=== PATIENT | male | born 1970 | race Caucasian/White ===

== ENCOUNTER 2019-07-26 18:52 | Emergency (ER) | payer OTHER ==
[2019-07-26 18:57] VITALS: TEMP 98.1
[2019-07-26] MEDS ORDERED: HYDROcodone/APAP 5-325MG 1 EACH TAB PO STA (19:30)
[2019-07-26] MEDS ORDERED: DIPH,PERTUS(ACELL)TETVAC-LF 0.5 ML VIAL IM ONE (19:31)
[2019-07-26] MEDS ORDERED: LIDOCAINE 1% INJ 10MG/ML (20 ML MDV) SQ ONE (19:31)
[2019-07-26] MEDS ORDERED: GELATIN SPONGE,ABSORB (SMALL) 1 EACH SPONGE TOPICAL STA (19:33)
--- NOTE | 2019-07-26 20:44 | XR ---
EXAMINATION TYPE: XR finger RT DATE OF EXAM: 07/26/2019 COMPARISON: None HISTORY: Right middle finger cut with table saw TECHNIQUE: Three-view right middle finger FINDINGS: No acute fractures are evident. Joint spaces are preserved. There may be some mild soft tis deyanira prominence over the pad of the finger. No radiopaque foreign bodies are evident. IMPRESSION: 1. No acute osseous abnormality. 2. Soft tissue injury
[2019-07-26] MEDS ORDERED: ACET/COD 300 MG/30 MG STARTER PACK 6 TAB BTL PO STA (21:28)
--- NOTE | 2019-07-26 21:28 | ED ---
Wound/Laceration HPI - General Chief Complaint: Wound/Laceration Stated Complaint: Hand injury Time Seen by Provider: 07/26/19 19:09 Source: patient Mode of arrival: ambulatory Limitations: no limitations - History of Present Illness Initial Comments: 49-year-old male patient presents to the emergency department today for evaluation after cutting his right middle finger on a table saw. Patient states that injury occurred approximately one hour ago. Denies taking any medication for his pain. Denies any use of anticoagulant or antiplatelet medications. States he is having significant pain to the right middle finger. Denies any numbness or tingling. Denies any other injuries. He is unsure when his last tetanus vaccine was given. Patient denies any headache, neck pain, back pain, chest pain, shortness of breath, dizziness, weakness, abdominal pain, nausea, vomiting, or difficulties with bowel movements or urination. - Related Data Previous Rx's Medication Instructions Recorded Ibuprofen [Motrin] 600 mg PO Q8HR PRN #30 tab 07/26/19 Allergies Allergy/AdvReac Type Severity Reaction Status Date / Time No Known Allergies Allergy Verified 07/26/19 18:57 Review of Systems ROS Statement: Those systems with pertinent positive or pertinent negative responses have been documented in the HPI. ROS Other: All systems not noted in ROS Statement are negative. Past Medical History Past Medical History: No Reported History History of Any Multi-Drug Resistant Organisms: None Reported Additional Past Surgical History / Comment(s): nasal surgery Past Psychological History: No Psychological Hx Reported Smoking Status: Current every day smoker Past Alcohol Use History: None Reported Past Drug Use History: None Reported General Exam Limitations: no limitations General appearance: alert, in no apparent distress, other (Physical well- developed, well-nourished adult male patient in no acute distress. Vital signs upon presentation are temperature 98.1F, pulse 68, respirations 18, blood pressure 166/98, pulse ox 96% on room air.) Respiratory exam: Present: normal lung sounds bilaterally. Absent: respiratory distress, wheezes, rales, rhonchi, stridor Cardiovascular Exam: Present: regular rate, normal rhythm, normal heart sounds. Absent: systolic murmur, diastolic murmur, rubs, gallop, clicks GI/Abdominal exam: Present: soft, normal bowel sounds. Absent: distended, tenderness, guarding, rebound, rigid Neurological exam: Present: alert, oriented X3, CN II-XII intact Psychiatric exam: Present: normal affect, normal mood Skin exam: Present: warm, dry, intact, normal color. Absent: rash Course Vital Signs 07/26/19 07/26/19 18:54 22:07 Temperature 98.1 F Pulse Rate 68 70 Respiratory 18 20 Rate Blood Pressure 166/98 143/92 O2 Sat by Pulse 96 97 Oximetry Procedures - Laceration Laceration #1 Consent Obtained: verbal consent Indication: other (fingertip avulsion) Description: avulsion Depth: simple, single layer Anesthetic Used: lidocaine 1% Anesthesia Technique: nerve block Pre-repair: irrigated extensively Patient Tolerated Procedure: well, no complications Additional Comments: Nerve block was obtained to provide adequate cleansing. No sutures needed. Medical Decision Making - Medical Decision Making 49-year-old male patient presented to the emergency department today for evaluation of right middle finger injury. Physical examination did reveal a fingertip avulsion with nail injury. Wound was cleansed after digital block performed. Gelfoam was applied and pressure dressing applied to control bleeding. X-ray was negative for any evidence of osseous abnormality. He will be discharged to follow-up with hand specialty for further evaluation as soon as possible. He was educated regarding signs or symptoms of infection and wound care. Return parameters were discussed in detail. He verbalizes understanding and agrees this plan. - Radiology Data Radiology results: report reviewed, image reviewed X-ray of the right middle finger is obtained. There is reviewed in its entirety. Impression by Dr. Faye shows no acute osseous abnormality. Soft tissue injury. Disposition Clinical Impression: Fingertip avulsion Disposition: HOME SELF-CARE Condition: Good Instructions (If sedation given, give patient instructions): Acute Wound Care (ED), Finger Amputation (ED) Additional Instructions: Keep wound clean and dry. Cleanse twice daily with warm water and antibacterial soap. Call orthopedic specialty for further evaluation. The primary care physician for recheck in 1-2 days. Return to the emergency department immediately for any new, worsening, or concerning symptoms. Prescriptions: Ibuprofen [Motrin] 600 mg PO Q8HR PRN #30 tab PRN Reason: Pain Is patient prescribed a controlled substance at d/c from ED?: No Referrals: Tenzin Merritt DO [Doctor of Osteopathic Medicine] - 1-2 days Time of Disposition: 21:28
[2019-07-26 22:09] VITALS: BP 143/92; PULSE 70; RESP 20
== END 2019-07-26 22:05 | disposition home or self-care (01) ==
LOC: EC 18:52
DX: S61.302A Unspecified open wound of right middle finger with damage to nail, initial encounter (principal); Z23 Encounter for immunization; F17.200 Nicotine dependence, unspecified, uncomplicated; W31.2XXA Contact with powered woodworking and forming machines, initial encounter; Y92.009 Unspecified place in unspecified non-institutional (private) residence as the place of occurrence of the external cause
CPT/HCPCS: 73140; 90715; 64450; 99283; 90471; J2001

== ENCOUNTER 2020-03-18 10:29 | Emergency (ER) | payer OTHER ==
[2020-03-18] MEDS ORDERED: SODIUM CHLORIDE 0.9% 1,000 ML IV STA (10:43)
[2020-03-18] MEDS ORDERED: ASPIRIN 81 MG PO STA (10:43)
[2020-03-18] MEDS ORDERED: NITROGLYCERIN SL TABS 0.4 MG TAB SUBLINGUAL STA (10:43)
--- NOTE | 2020-03-18 10:47 | ED ---
Chest Pain HPI - General Chief Complaint: Chest Pain Stated Complaint: chest pain Time Seen by Provider: 03/18/20 10:38 Source: patient, RN notes reviewed, old records reviewed Mode of arrival: wheelchair Limitations: no limitations - History of Present Illness Initial Comments: Patient is a 50-year-old male presents emergency department today with chest pain and reports a heaviness to his chest radiating at a 4 out of 10 at this time. He reports symptoms started 30 minutes ago while walking around [employer]. He reports that he has been having a lot of stress with his life for the past few days. He states that he has had previous chest pain such as this but was no determination as to what causes. He does report a stress test completed many years ago. Patient reports positive family history of heart disease. He denies being a smoker and denies history of diabetes or hypertension. Patient states that he has no significant chest pain. He reports that he started to be diaphoretic when the symptoms started to occur. Patient has not taken aspirin or any other medications at this time. - Related Data Home Medications Medication Instructions Recorded Confirmed No Known Home Medications 03/18/20 03/18/20 Allergies Allergy/AdvReac Type Severity Reaction Status Date / Time No Known Allergies Allergy Verified 03/18/20 11:19 Review of Systems ROS Statement: Those systems with pertinent positive or pertinent negative responses have been documented in the HPI. ROS Other: All systems not noted in ROS Statement are negative. EKG Findings - EKG Comments: EKG Findings:: EKG performed at 10:41 AM shows sinus bradycardia otherwise normal EKG. Ventricular rate of 58 bpm. VT interval is once exposed milliseconds. QS duration is 84 ms. QT QTc is 410/402 ms. Past Medical History Past Medical History: No Reported History History of Any Multi-Drug Resistant Organisms: None Reported Additional Past Surgical History / Comment(s): nasal surgery Past Psychological History: No Psychological Hx Reported Smoking Status: Former smoker Past Alcohol Use History: None Reported Past Drug Use History: None Reported General Exam - General Exam Comments Initial Comments: Patient is a pleasant 50-year-old male. No distress. Limitations: no limitations General appearance: alert, in no apparent distress Head exam: Present: atraumatic, normocephalic, normal inspection Eye exam: Present: normal appearance, PERRL, EOMI. Absent: scleral icterus, conjunctival injection, periorbital swelling ENT exam: Present: normal exam, mucous membranes moist Neck exam: Present: normal inspection. Absent: tenderness, meningismus, lymphadenopathy Respiratory exam: Present: normal lung sounds bilaterally. Absent: respiratory distress, wheezes, rales, rhonchi, stridor Cardiovascular Exam: Present: regular rate, normal rhythm, normal heart sounds. Absent: systolic murmur, diastolic murmur, rubs, gallop, clicks GI/Abdominal exam: Present: soft, normal bowel sounds. Absent: distended, tenderness, guarding, rebound, rigid Extremities exam: Present: normal inspection, full ROM, normal capillary refill. Absent: tenderness, pedal edema, joint swelling, calf tenderness Back exam: Present: normal inspection Neurological exam: Present: alert, oriented X3, CN II-XII intact Psychiatric exam: Present: normal affect, normal mood Skin exam: Present: warm, dry, intact, normal color. Absent: rash Course Vital Signs 03/18/20 03/18/20 10:32 12:21 Temperature 98.3 F Pulse Rate 61 54 L Respiratory 18 20 Rate Blood Pressure 159/96 124/81 O2 Sat by Pulse 95 Oximetry - Reevaluation(s) Reevaluation #1: 03/18/20 11:37 Patient was reevaluated stating that he is feeling much better at this time. He did report some improvement with nitro but he also states he questions if he just feels or relaxed and less anxious knowing he had a normal EKG and is in the hospital this time. He does state he has been under a lot of stress. Chest [place] [facility] 50-year-[facility] male presents for insurance and complains of anxiety and stress as well as complained of some chest discomfort started 30 minutes prior to arrival. He states he did not office was related to anxiety and stress versus actual concerning for cardiac chest pain. Patient was given nitro and aspirin and he states he is very certainly feel better with no chest pain prior to giving his medications. Reevaluation is resting comfortably been states he is feeling better and less anxious. His initial troponin test was negative. I did offer the Patient to observation a states he does not want to be admitted to the [facility]. He did agree to stay for 2 troponin test which both have been negative. Discussed the concern for any cardiac origin of chest pain and discussed his concerning risk factors. He states he is adamant and would like to be discharged home. I will give the Patient referral to primary care doctor as well as cardiology and discussed return parameters for further chest pain to return promptly. Patient is to treatment plan will comply. Chest x-ray is negative for any acute cardio pulmonary process. Disposition Clinical Impression: Chest pain, Stress Disposition: HOME SELF-CARE Condition: Good Instructions (If sedation given, give patient instructions): Chest Pain (ED) Additional Instructions: Patient advised to return to the ER presenting for further worsening symptoms of chest discomfort. If he can follow-up with primary care doctors within the next week as well as cardiology for any further outpatient testing that may be necessary such as a stress test. Is patient prescribed a controlled substance at d/c from ED?: No Referrals: None,Stated [Primary Care Provider] - 1-2 days Time of Disposition: 14:50
--- NOTE | 2020-03-18 11:03 | XR ---
EXAMINATION TYPE: XR chest 2V DATE OF EXAM: 03/18/2020 COMPARISON: NONE HISTORY: Chest pain today. TECHNIQUE: Frontal and lateral views of the chest are obtained. FINDINGS: Overlying EKG leads. There is no focal air space opacity, pleural effusion, or pneumothorax seen. The cardiac silhouette size is within normal limits. The osseous structures are intact. IMPRESSION: No acute process.
[2020-03-18 11:34] LABS: Basophils # (A) 0.1 k/uL (0-0.2); Basophils % (A) 1 %; Eosinophils # (A) 0.2 k/uL (0-0.7); Eosinophils % (A) 2 %; HCT 46.7 % (39.0-53.0); HGB 15.3 gm/dL (13.0-17.5); Lymphocytes # (A) 1.9 k/uL (1.0-4.8); Lymphocytes % (A) 25 %; MCH 29.2 pg (25.0-35.0); MCHC 32.7 g/dL (31.0-37.0); MCV 89.4 fL (80.0-100.0); Mean Platelet Volume 7.1; Monocytes # (A) 0.5 k/uL (0-1.0); Monocytes % (A) 7 %; Neutrophils # (A) 4.8 k/uL (1.3-7.7); Neutrophils % (A) 64 %; Platelet Count 306 k/uL (150-450); RBC 5.23 m/uL (4.30-5.90); RDW 13.3 % (11.5-15.5); WBC 7.5 k/uL (3.8-10.6)
[2020-03-18 11:48] LABS: ALT 100 U/L (4-49); AST 27 U/L (17-59); African American GFR (CKD) >90 (>60 ml/min/1.73 sqM); Albumin 4.3 g/dL (3.5-5.0); Alkaline Phosphatase 120 U/L (38-126); Anion Gap 5 mmol/L; Blood Urea Nitrogen 17 mg/dL (9-20); Calcium 9.4 mg/dL (8.4-10.2); Carbon Dioxide 25 mmol/L (22-30); Chloride 106 mmol/L (98-107); Glucose 112 mg/dL (74-99); Non-African American GFR(CKD) 81 (>60 ml/min/1.73 sqM); Potassium 4.5 mmol/L (3.5-5.1); Sodium 136 mmol/L (137-145); Total Bilirubin 0.6 mg/dL (0.2-1.3); Total Protein 7.7 g/dL (6.3-8.2)
[2020-03-18 15:02] VITALS: BP 140/80; PULSE 56; RESP 18; TEMP 98.6
== END 2020-03-18 15:02 | disposition home or self-care (01) ==
LOC: EC 10:29
DX: R07.89 Other chest pain (principal); F43.9 Reaction to severe stress, unspecified; Z87.891 Personal history of nicotine dependence
CPT/HCPCS: 36415; 71046; 80053; 83735; 83880; 84484; 85025; 85610; 85730; 93005; 96360; 99285